=== PATIENT | female | born 1960 | race Caucasian/White ===

== ENCOUNTER → 2023-07-28 08:12 | Outpatient (REF) | payer MEDICARE, SELFPAY | LOC: RST 08:12 | PROVIDERS: ATTENDING PHYSICIAN Otolaryngology; FAMILY PHYSICIAN Family Medicine | DX: C32.9 Malignant neoplasm of larynx, unspecified (principal); R13.12 Dysphagia, oropharyngeal phase | CPT/HCPCS: 74230; 92611 ==